=== PATIENT | male | born 1950 | race Caucasian/White ===

== ENCOUNTER 2016-09-28 19:14 | Emergency (ER) | payer MEDICARE, OTHER ==
[2016-09-28] MEDS ORDERED: Adacel (T-DAP) 0.5 ML VIAL ONE (19:27)
[2016-09-28] MEDS ORDERED: Bacitracin Zinc 1 Packet ONE (19:41)
[2016-09-28] MEDS ORDERED: Sulfameth/Trimethoprim DS 800-160mg TAB ONE (19:53)
== END 2016-09-28 20:00 | disposition home or self-care (01) ==
LOC: BURERS 19:14
DX: S60.452A Superficial foreign body of right middle finger, initial encounter (principal); I10 Essential (primary) hypertension; E11.9 Type 2 diabetes mellitus without complications; W26.8XXA Contact with other sharp object(s), not elsewhere classified, initial encounter
CPT/HCPCS: 64450; 90471; 90715; J2001